=== PATIENT | female | born 1965 | race American Indian/Alaskan Native ===

== ENCOUNTER 2018-01-15 20:27 | Emergency (ER) | payer BC, OTHER ==
[2018-01-15 20:36] VITALS: BMI 29.2
[2018-01-15] MEDS ORDERED: SODIUM CHLORIDE 0.9% 500 ML INFUS.BAG IV ONE (21:34)
--- NOTE | 2018-01-15 21:38 | PDOC ---
History of Present Illness - General Chief Complaint: Vaginal Bleeding Stated Complaint: VAGINAL BLEEDING Time Seen by Provider: 01/15/18 21:14 History Source: Patient Exam Limitations: No Limitations - History of Present Illness Initial Comments: 01/15/18 21:35 Patient is a 52 year old female with h/o sarcoid, fibroids, metromenorrhagia with blood transfusion and iron infusion c/o vaginal bleeding 8 days. States this evening she has been bleeding very heavily and passing clots. About 7: 30pm she started to have palpitationsheart racing, weakness, shortness of breath - breathing hard and fast, chest pain - pressure, numbness and tingling in her left arm. States she got very nervous and thought these were signs that she needed to have iron infusion or blood transfusion and came to the emergency room for evaluation. She states on arrival in the emergency room that her chest pressure symptoms were resolved. Denies any dizziness, nausea, vomiting, chills , dysuria PMD: Dr. Mosquera [employer]: Dr. Dinh PMHX: as above PSOCHX: (+) cig 4/day, neg drug, neg etoh ALL: NKDA GENERAL/CONSTITUTIONAL: [No fever or chills. (+) weakness. No weight change.] HEAD, EYES, EARS, NOSE AND THROAT: [No change in vision. No ear pain or discharge. No sore throat.] CARDIOVASCULAR: (+) chest pain or shortness of breath.] RESPIRATORY: [No cough, wheezing, or hemoptysis.] GASTROINTESTINAL: [No nausea, vomiting, diarrhea or constipation. No rectal bleeding.] GENITOURINARY: [No dysuria, frequency, or change in urination.] MUSCULOSKELETAL: [No joint or muscle swelling or pain. No neck or back pain.] SKIN AND BREASTS: [No rash or easy bruising.] NEUROLOGIC: [No headache, vertigo, loss of consciousness, or loss of sensation.] PSYCHIATRIC: [No depression (+) anxiety.] ENDOCRINE: [No increased thirst. No abnormal weight change.] HEMATOLOGIC/LYMPHATIC: [No anemia, easy bleeding, or history of blood clots.] ALLERGIC/IMMUNOLOGIC: [No hives or skin allergy. No latex allergy.] GENERAL: [The patient is awake, alert, and fully oriented, in mild distress.] HEAD: [Normal with no signs of trauma.] EYES: [Pupils equal, round and reactive to light, extraocular movements intact, sclera anicteric, conjunctiva clear.] ENT: [Ears normal, nares patent, oropharynx clear without exudates. Moist mucous membranes.] NECK: [Normal range of motion, supple , (+) submental lymphadenopathy, JVD, or masses.] LUNGS: [Breath sounds equal, clear to auscultation bilaterally. No wheezes, and no crackles.] HEART: [Regular rate and rhythm, normal S1 and S2 without murmur, rub.] ABDOMEN: [Soft, (+) tenderness lower abd, normoactive bowel sounds. No guarding , no rebound. No masses.] PELVIC: refused EXTREMITIES: [Normal range of motion, no edema. No clubbing or cyanosis. No cords, erythema, or tenderness.] NEUROLOGICAL: [Cranial nerves II through XII grossly intact. Normal speech, normal gait.] PSYCH: [anxious mood, normal affect.] SKIN: [Warm, Dry, normal turgor, no rashes or lesions noted.] Past History - Past Medical History Allergies/Adverse Reactions: Allergies Allergy/AdvReac Type Severity Reaction Status Date / Time No Known Allergies Allergy Verified 11/04/15 18:09 Home Medications: Ambulatory Orders Zolpidem Tartrate [Ambien] 10 mg PO HS 07/21/14 Ferrous Sulfate 325 mg PO DAILY #30 tablet 11/05/15 Anemia: Yes Asthma: Yes (UPPER RESP SARCOIDOSIS) Cancer: No Cardiac Disorders: No CVA: No COPD: No CHF: No Dementia: No Diabetes: No GI Disorders: No Disorders: Yes (fibroids) HTN: No Hypercholesterolemia: No Liver Disease: No Seizures: No Thyroid Disease: No - Surgical History Abdominal Surgery: Yes (ECTOPIC) Appendectomy: No Cardiac Surgery: No Cholecystectomy: No Lung Surgery: No Neurologic Surgery: No Orthopedic Surgery: No - Immunization History Immunization Up to Date: Yes - Suicide/Smoking/Psychosocial Hx Smoking History: Current every day smoker Have you smoked in the past 12 months: Yes Number of Cigarettes Smoked Daily: 2 Information on smoking cessation initiated: No 'Breaking Loose' booklet given: 05/29/14 Hx Alcohol Use: No Drug/Substance Use Hx: No Substance Use Type: None Hx Substance Use Treatment: No *Physical Exam - Vital Signs Last Vital Signs Temp Pulse Resp BP Pulse Ox 98.5 F 76 17 148/81 100 01/15/18 20:33 01/15/18 20:33 01/15/18 20:33 01/15/18 20:33 01/15/18 20:33 ED Treatment Course - LABORATORY CBC & Chemistry Diagram: 01/15/18 21:10 01/15/18 21:10 - RADIOLOGY Radiology Studies Ordered: Category Date Time Status CHEST PA & LAT [RAD] Stat Radiology 01/15/18 21:32 Ordered Medical Decision Making - Medical Decision Making 01/15/18 21:35 Patient is a 52 year old female with h/o sarcoid, fibroids, metromenorrhagia with blood transfusion and iron infusion c/o vaginal bleeding 8 days. States this evening she has been bleeding very heavily and passing clots. About 7: 30pm she started to have palpitationsheart racing, weakness, shortness of breath - breathing hard and fast, chest pain - pressure, numbness and tingling in her left arm. Refused vaginal exam states she will follow up with her [employer]. chest pressure/sob/palpations symptoms consistent with panic attack but will r/ o anemia, cardiac ekg, labs, trop, cxr labs reviewed noted to have hgb 11. reported to the patient and is now requesting to leave. EKG: SB, RAD, T wave inversion I, II, aVL changed from 11/04/15 will repeat trop CXR neg Repeat troponin negative I discussed the physical exam findings, ancillary test results and final diagnoses with the patient. I answered all of the patient's questions. The patient was satisfied with the care received and felt comfortable with the discharge plan and treatment plan. The Patient agrees to follow up with the primary care physician within 24-72 hours. *DC/Admit/Observation/Transfer Diagnosis at time of Disposition: Metrorrhagia Chest pain Qualifiers: Chest pain type: unspecified Qualified Code(s): R07.9 - Chest pain, unspecified - Discharge Dispostion Disposition: HOME Condition at time of disposition: Stable - Referrals Referrals: Mauricio Ybarra MD [Primary Care Provider] - - Patient Instructions Printed Discharge Instructions: DI for Atypical Chest Pain, DI for Menorrhagia Additional Instructions: Your Discharge Instructions: You must call primary care physician within 24 hours to arrange follow-up. Return to the Emergency Department with any new, persistent or worsening symptoms, for fever, chills, SOB, dizziness or any other concerning changes that may occur. CALL THE [facility] AT [phone] FOR FOLLOW UP WITH CHEST PAIN AND CHANGES ON YOUR EKG - Post Discharge Activity
[2018-01-15 22:07] LABS: BASO % 0.8 % (0-2.0); EOS % 1.4 % (0-4.5); HEMATOCRIT 32.4 % (32.4-45.2); LYMPH % 35.4 % (8-40); MCH 29.5 pg (25.7-33.7); MCHC 33.9 g/dl (32.0-36.0); MEAN CELL VOLUME 87.1 fl (80-96); NEUT % 56.4 % (42.8-82.8); PLATELET COUNT 301 K/MM3 (134-434); RBC 3.72 M/mm3 (3.60-5.2); RDW 14.2 % (11.6-15.6); WHITE BLOOD COUNT 6.9 K/mm3 (4.0-10.0)
[2018-01-15 22:18] LABS: INR 0.92 (0.83-1.09); PROTHROMBIN TIME (PATIENT) 10.9 SEC (9.7-13.0)
[2018-01-15 22:33] LABS: ALBUMIN 3.8 g/dl (3.4-5.0); ALK PHOS 36 U/L (45-117); ANION GAP 5 MMOL/L (8-16); BILIRUBIN,TOTAL 0.2 mg/dL (0.2-1); BLOOD UREA NITROGEN 9 mg/dL (7-18); CALCIUM 9.7 mg/dL (8.5-10.1); CHLORIDE 107 mmol/L (98-107); CO2 26 mmol/L (21-32); CREATININE 0.7 mg/dL (0.55-1.3); GLUCOSE,RANDOM 76 mg/dL (74-106); POTASSIUM 3.5 mmol/L (3.5-5.1); SGOT/AST 18 U/L (15-37); SGPT/ALT 23 U/L (13-61); SODIUM 138 mmol/L (136-145); TOT PROT 7.5 g/dl (6.4-8.2)
[2018-01-16 02:31] VITALS: BP 120/79; PULSE 56; TEMP 98.6
--- NOTE | 2018-01-16 10:37 | EKG ---
Test Reason : Blood Pressure : / mmHG Vent. Rate : 049 BPM Atrial Rate : 049 BPM P-R Int : 184 ms QRS Dur : 096 ms QT Int : 432 ms P-R-T Axes : 000 193 180 degrees QTc Int : 390 ms SINUS BRADYCARDIA WHEN COMPARED WITH ECG OF 04-NOV-2015 18:29, SUSPECT ARM LEAD REVERSAL, INTERPRETATION ASSUMES NO REVERSAL Confirmed by PARKER SCHUMACHER MD ([id number]) on 01/16/2018 10:37:39 AM Referred By: Confirmed By:PARKER SCHUMACHER MD
== END 2018-01-16 02:43 | disposition home or self-care (01) ==
LOC: JER 20:27
DX: N92.1 Excessive and frequent menstruation with irregular cycle (principal); E07.89 Other specified disorders of thyroid; D50.9 Iron deficiency anemia, unspecified; D25.9 Leiomyoma of uterus, unspecified; D86.89 Sarcoidosis of other sites; F17.210 Nicotine dependence, cigarettes, uncomplicated
CPT/HCPCS: 36415; 71046-TC-FY; 80053; 82550; 82553; 84484; 84702; 85025; 85610; 86850; 86900; 86901; 93005; 93010; 99283-25